=== PATIENT | male | born 1985 | race Caucasian/White ===

== ENCOUNTER 2024-12-10 13:19 | Emergency (ER) | payer OTHER, SELFPAY ==
[2024-12-10 13:32] VITALS: BP 150/111
[2024-12-10 14:02] LABS: Urine Albumin 2+ (Neg - Trace); Urine Bilirubin Negative (Negative); Urine Character Clear (Clear); Urine Color Yellow; Urine Glucose Negative (Negative); Urine Ketone Negative (Negative); Urine Leukocyte Trace (Negative); Urine Nitrite Negative (Negative); Urine Occult Blood 4+ (Negative); Urine Urobilinogen Negative (Neg - 1+); Urine pH 6.5 (5.0-9.0)
[2024-12-10 14:03] LABS: % Basophils 0.6 % (0-2); % Eosinophils 1.6 % (0-6); % Immature Granulocytes 0.6 % (0-0.5); % Lymphocytes 12.9 % (20.5-51.1); % Monocytes 9.1 % (1.7-9.3); % Neutrophils 75.2 % (42.2-75.2); Absolute Basophils 0.1 10^3/uL (0-0.2); Absolute Eosinophils 0.2 10^3/uL (0-0.7); Absolute Immature Granulocytes 0.1 10^3/uL (0-0.05); Absolute Lymphocytes 1.3 10^3/uL (1.2-3.4); Absolute Monocytes 0.9 10^3/uL (0.1-0.6); Absolute Neutrophils 7.7 10^3/uL (1.4-6.5); Mean Corp Hgb Conc. 34.8 g/dL (33.0-37.0); Mean Corpuscular Hgb 29.8 pg (27.0-31.0); Mean Corpuscular Volume 85.7 fL (80.0-94.0); Mean Platelet Volume 10.1 fL (7.4-10.4); Nucleated Red Blood Cells % 0 % (-); Platelet Count 210 10^3/uL (130-400); Red Blood Cell Count 5.37 10^6/uL (4.70-6.10); White Blood Cell Count 10.2 10^3/uL (4.8-10.8)
[2024-12-10 14:10] LABS: Urine Hyaline Cast 0-2 /LPF (0-2); Urine Squamous Cell 0-2 /LPF (Few)
[2024-12-10 14:11] LABS: Urine Bacteria Moderate (Negative); Urine Red Blood Cell 40-50 /HPF (0-2)
[2024-12-10 14:16] LABS: ALT (SGPT) 24 U/L (0-50); AST (SGOT) 24 U/L (17-59); Albumin 4.6 g/dl (3.5-5.0); Alkaline Phosphatase 56 U/L (38-126); Blood Urea Nitrogen 17 mg/dl (9-20); Calcium 8.9 mg/dl (8.4-10.2); Carbon Dioxide 30 mmol/L (22-30); Chloride 96 mmol/L (98-107); Glucose 114 mg/dl (70-99); Potassium 4.3 mmol/L (3.5-5.1); Sodium 136 mmol/L (135-145); Total Bilirubin 1.2 mg/dl (0.2-1.3); Total Protein 7.2 g/dl (6.3-8.2); eGFR > 60.00
[2024-12-10 14:18] LABS: Lactic Acid 0.7 mmol/L (0.7-2.0)
[2024-12-10 14:22] LABS: COVID-19 Antigen Negative (Negative)
--- NOTE | 2024-12-10 16:04 | ED.GENMED ---
History of Present Illness
General
Chief Complaint: Fever
Source: patient
Exam Limitations: none
Time Seen by Provider: 12/10/24 15:47
Nursing documentation reviewed up to this point in time: agreed with
History of Present Illness
History of Present Illness:
Patient to ED with complaint of fatigue, fever, nausea, sorethroat. States 1 week ago he developed right ear pain. Seen at and placed on antibiotic and steroids. States symptoms returned after completion of steroids. Brought self to ED for
eval.
Past History
Past History
ED Past Medical History: HTN and Other (Herniated disc of the cervical spine )
ED Past Surgical History: Other (2 sinus surgeries, and 2 knee surgeries )
Social History
Tobacco: Non-smoker
Review of Systems
Review of Systems
Allergies reviewed?: Yes
All Other Systems: ROS reviewed and negative except as documented in HPI and ROS
Constitutional: Reports fever and fatigue
EENT: Reports sore throat and other (right ear pain initially)
Respiratory: Reports cough
Cardiac: Reports no symptoms
ABD/GI: Reports nausea
: Reports no symptoms
Musculoskeletal: Reports no symptoms
Skin: Reports no symptoms
Neurological: Reports weakness
Psychiatric: Reports no symptoms
Phy Exam
General Physical Exam
General Presentation: mild distress
General age: appears stated age
General Skin: warm and dry
General Habitus: normal
General Mental: alert
General Hydration: appears well hydrated
ENT Exam
ENT Exam: EOMI, TM's normal, pharynx normal, neck supple and swallowing well
Cardiovascular Exam
Cardiovascular Exam: regular rate/rhythm
Pulmonary Exam
Pulmonary Exam: lungs clear, no respiratory distress and chest non tender
Cough: non productive cough
Gastrointestinal Exam
Gastrointestinal Exam: non tender and soft
Neurological Exam
Neurological Exam: alert, oriented x3, CN II-XII intact, no motor deficits, no sensory deficits and speech normal
Musculoskeletal Exam
Musculoskeletal Exam: full ROM and neuro vasc intact
Skin Exam
Skin Exam: normal color, warm/dry and no rash
Psychiatric Exam
Psychiatric Exam: normal mood/affect
Course
Orders/Labs/Results
Orders:
Orders
12/10/24 13:36
Electrocardiogram (*1) Urgent
Reason for Study: Chest Pain
EKG- Treatment ONCE
CXR2 [CR Chest - 2 Views ] Urgent
Comment:
Reason For Exam: uri with fever
12/10/24 13:44
Complete Blood Count/With Diff Urgent
Comprehensive Metabolic Panel Urgent
Lactic Acid Urgent
Influenza A+B Rapid Molecular Urgent
JAQUAN Source: Nasal Swab
Specimen Description:
Date Specimen was Collected: 12/10/24
Time Specimen was Collected: 13:36
12/10/24 13:47
COVID-19 Antigen Urgent
Source: Nasal Swab
Urinalysis Reflex To Culture Urgent
Date Specimen was Collected: 12/10/24
Time Specimen was Collected: 13:36
Urine Microscopic Reflex Cult Urgent
Urine Culture Urgent
JAQUAN Source: U
Specimen Description:
Date Specimen was Collected: 12/10/24
Time Specimen was Collected: 13:36
12/10/24 15:58
Ondansetron Orally Disint [Zofran Odt (Orally Disintegrating)] 4 mg PO NOW STA
Oseltamivir Phosphate [Tamiflu] 75 mg PO NOW STA
Abnormal Lab Results
12/10/24 12/10/24
13:44 13:47
Abs Immat Gran (auto) 0.1 H 10^3/uL
(0-0.05)
Absolute Neuts (auto) 7.7 H 10^3/uL
(1.4-6.5)
Absolute Monos (auto) 0.9 H 10^3/uL
(0.1-0.6)
Immature Gran % 0.6 H %
(0-0.5)
Lymphocytes % 12.9 L %
(20.5-51.1)
Chloride 96 L mmol/L
(98-107)
Glucose 114 H mg/dl
(70-99)
Ur Occult Blood Reflex 4+ A
(Negative)
Leukocyte Esterase Rfl Trace A
(Negative)
Urine RBC 40-50 A /HPF
(0-2)
Urine Bacteria (Reflex) Moderate A
(Negative)
Urine Albumin (Reflex) 2+ A
(Neg - Trace)
12/10/24 13:44
12/10/24 13:44
Vital Signs
Initial and Last Documented VS:
Initial Vital Signs
Temp Pulse Resp BP Pulse Ox
100.0 F 86 16 150/111 98
12/10/24 13:32 12/10/24 13:32 12/10/24 13:32 12/10/24 13:32 12/10/24 13:32
Last Documented Vital Signs
Temp Pulse Resp BP Pulse Ox
100.0 F 86 16 150/111 98
12/10/24 13:32 12/10/24 13:32 12/10/24 13:32 12/10/24 13:32 12/10/24 13:32
*Radiology
Radiology exam reviewed: radiology read reviewed
*Pulse Oximetry
Patient hypoxic: no
*Critical Care Note
Total Time (30-74mins, 75-104mins- exclusive of procedures): Not Applicable
Update Note
Update Note:
Patient to ED with complaint of fever, cough, sorethroat, fatigue. Symptoms started 1 week ago. Influenza positive today. Discussed tamiflu. Patient is aware that med should be given within 48hours of symptoms. He would like to take med
regardless. Labs reviewed. +4 microscopic blood on UA noted, 6-10 WBC. Will wait for culture to result. He is discharged home. Instructed to treat symptoms, close follow up with PCP.
ED Attending Note
-
Portions of this chart may have been created with voice recognition software.� Occasional wrong word or��sound alike� substitutions may have occurred due to the inherent limitations of voice recognition software.
Discharge Plan
Departure
Patient Disposition: Home (Routine Discharge)
Date of Disposition: 12/10/24
Time of Disposition: 16:01
Patient with high blood pressure during this ER visit?: No
Condition: Good
Covid-19: Not Applicable
Discharge Problem:
Influenza A
Instructions: Viral Syndrome (DC), Flu in adults - ED discharge instructions
Prescriptions:
New
ondansetron 4 mg tablet,disintegrating
4 mg PO TID PRN (Reason: nausea and vomiting) 3 Days Qty: 9 0RF
oseltamivir [Tamiflu] 75 mg capsule
75 mg PO BID Qty: 10 0RF
No Action
amlodipine 5 MG tablet
5 mg PO DAILY
heihqmqlza-nexegaumlwkus-qmcg 1 EACH tablet
1 ea PO DAILY PRN (Reason: Headaches)
metoprolol tartrate 50 MG tablet
50 mg PO DAILY
budesonide 3 MG capsule,delayed,extend.release
9 mg PO DAILY
fentanyl 50 MCG/HR patch 72 hour
50 mcg transdermal Q72H Qty: 5 0RF
prednisone 50 MG tablet
50 mg PO DAILY Qty: 6 0RF
amoxicillin 875 MG tablet
875 mg PO BID Qty: 20 0RF
metaxalone [Skelaxin] 800 MG tablet
800 mg PO .3-4 TIMES DAILY PRN PRN (Reason: MUSCLE SPASM/TIGHTNESS) Qty: 20 0RF
tobramycin 1 DROP drops
1 drp RIGHT EYE Q4HWA Qty: 1 0RF
hydrocodone-acetaminophen [Vicodin] 1 EACH tablet
1 ea PO Q4HPRN PRN (Reason: severe pain) Qty: 10 0RF
Stand Alone Forms: Return to Work
Activity Restrictions/Additional Instructions:
Follow up with your family doctor
Interventions
Interventions:
*Risk Screen - Suicide Last Done: 12/10/24 13:32
*Neglect/Abuse Screening Last Done: 12/10/24 13:32
Discharge Date and Time
Print Language: [place]
[2024-12-10] MEDS: ZOFRAN ODT (ORALLY DISINTEGRATING) 4 MG PO (16:31)
[2024-12-10] MEDS: TAMIFLU 75 MG PO (16:43)
== END 2024-12-10 16:50 | disposition home or self-care (01) ==
LOC: EMR 13:19
PROVIDERS: Emergency Medicine; EMERGENCY PHYSICIAN Emergency Medicine; FAMILY PHYSICIAN Family Medicine
DX: J10.1 Influenza due to other identified influenza virus with other respiratory manifestations (principal); I10 Essential (primary) hypertension
CPT/HCPCS: 99283; 71046; 80053; 81003; 81015; 83605; 85025; 87086; 87502; 87811; 93005